=== PATIENT | female | born 1975 | race American Indian/Alaskan Native ===

== ENCOUNTER 2019-06-30 05:58 | Day surgery (SDC) | payer BC, OTHER ==
[2019-06-30] MEDS ORDERED: LACTATED RINGERS 1,000 ML IV SCH (07:00)
[2019-06-30 07:11] LABS: Eosinophils # (Auto) 0.1 K/mm3 (0.0-0.4); Eosinophils % (Auto) 1.3 % (0.0-4.3); Hematocrit 34.3 % (30.3-42.9); Lymphocytes # (Auto) 1.8 K/mm3 (1.2-5.4); Lymphocytes % (Auto) 43.6 % (13.4-35.0); Mean Corpuscular HGB Conc 35 % (30-34); Mean Corpuscular Volume 86 fl (79-97); Monocytes # (Auto) 0.3 K/mm3 (0.0-0.8); Monocytes % (Auto) 7.1 % (0.0-7.3); Platelet Count 282 K/mm3 (140-440); Red Cell Distribution Width 13.2 % (13.2-15.2)
[2019-06-30] MEDS ORDERED: ZOFRAN IV PRN (07:12)
[2019-06-30] MEDS ORDERED: SUBLIMAZE IV PRN (07:12)
--- NOTE | 2019-06-30 07:12 | Anesthesia Day of Surgery ---
Anesthesia Day of Surgery - Day of Surgery Patient Examined: Yes Patient H&P Reviewed: Yes Patient is NPO: Yes
--- NOTE | 2019-06-30 07:13 | Anesthesia Consultation ---
Anesthesia Consult and Med Hx Date of service: 06/30/19 - Airway Anesthetic Teeth Evaluation: Caps ROM Head & Neck: Adequate Mental/Hyoid Distance: Adequate Mallampati Class: Class II Intubation Access Assessment: Good - Pre-Operative Health Status ASA Pre-Surgery Classification: ASA2 Proposed Anesthetic Plan: General - Cardiovascular System Hx Hypertension: Yes - Central Nervous System Hx Psychiatric Problems: Yes - Gastrointestinal Hx Gastroesophageal Reflux Disease: Yes (S/P Gastric Sleeve) - Hematic Hx Anemia: Yes ("low normal") - Other Systems Hx Alcohol Use: Yes (Occas) Hx Cancer: No
[2019-06-30] MEDS ORDERED: MARCAINE 0.5% INFILTRATI ONE ×2 (07:14→08:06)
[2019-06-30] MEDS ORDERED: SILVER NITRATE TP ONE (07:15)
--- NOTE | 2019-06-30 07:19 | Short Stay Summary ---
Short Stay Documentation Date of service: 06/30/19 Narrative H&P: 44-year-old with dysfunctional uterine bleeding and undesired fertility. The patient reports heavy menstrual cycles. She has no further desire to conceive and has elected to undergo permanent sterilization. An endometrial biopsy was performed with findings of benign endometrium. The patient is scheduled to undergo an endometrial ablation and bilateral tubal ligation. - History Principal diagnosis: dysfunctional uterine bleeding and undesired fertility Past Medical History: hypertension Past Surgical History: Other (breasts reduction; laparoscopy for ectopic ) Social history: - Allergies and Medications Current Medications: Allergies No Known Allergies Allergy (Verified 06/30/19 06:42) Home Medications Medication Instructions Recorded Confirmed Last Taken Type Citalopram [celeXA] 20 mg PO QDAY 06/23/19 06/30/19 06/23/19 10:00 History Losartan [Cozaar] 25 mg PO QDAY 06/23/19 06/23/19 06/29/19 12:00 History Multivitamin [One-Daily 1 each PO DAILY 06/23/19 06/23/19 06/29/19 12:00 History Multi-Vitamin] 147/Iron/Folic Acid 1 each PO DAILY 06/23/19 06/23/19 06/29/19 12:00 History [Azesco Tablet] Active Medications Fentanyl (Sublimaze) 50 mcg IV Q5MIN PRN PRN Reason: Pain , Severe (7-10) Lactated Ringer's (Lactated Ringers) 1,000 mls @ 100 mls/hr IV DIRECT MEGHAN Last Admin: 06/30/19 06:45 Dose: 100 mls/hr Documented by: Midazolam HCl (Versed) 2 mg IV PREOP NR Stop: 06/30/19 23:59 Ondansetron HCl (Zofran) 4 mg IV ONCE PRN PRN Reason: Nausea And Vomiting - Physical exam General appearance: no acute distress Integumentary: no rash HEENT: Atraumatic Lungs: Clear to auscultation Breasts: deferred Heart: Regular rate Gastrointestinal: normal Female Genitourinary: deferred Rectal Exam: deferred Extremities: no ischemia Neurological: Normal gait - Brief post op/procedure progress note Date of procedure: 06/30/19 Pre-op diagnosis: dysfunctional uterine bleeding; undesired fertility Post-op diagnosis: same Procedure: Hysteroscopy Endometrial ablation via NovaSure Exploratory laparotomy and bilateral salpingectomy Anesthesia: GETA Surgeon: FRANCESCA FERNANDEZ Estimated blood loss: 50-100ml Pathology: list (bilateral tubes; omental mass) Specimen disposition: to lab Condition: stable - Hospital course Hospital course: The patient was admitted the day of surgery for a NovaSure and tubal ligation. Please see operative note for details of the surgery. Her postoperative course was uneventful. - Disposition Condition at discharge: Good Disposition: [id number] TO HOME OR SELFCARE Short Stay Discharge Plan Activity: other (pelvic rest for 2 weeks) Diet: regular Additional Instructions: Schedule follow-up with Dr. Fernandez in 2 weeks Prescriptions: Ibuprofen [Motrin] 800 mg PO Q8HR PRN #60 tablet PRN Reason: Pain, Mild (1-3) oxyCODONE /ACETAMINOPHEN [Percocet 5/325] 1 tab PO Q6HR PRN #30 tablet PRN Reason: Pain
[2019-06-30] MEDS ORDERED: XYLOCAINE MPF 2% ONE (07:35)
[2019-06-30] MEDS ORDERED: DIPRIVAN 10 MG/ML IV ONE (07:35)
[2019-06-30] MEDS ORDERED: PHENYLEPHRINE/NS Syringe 1,000 MCG/10 ML IV ONE (07:35)
[2019-06-30] MEDS ORDERED: QUELICIN ONE (07:35)
[2019-06-30] MEDS ORDERED: SUBLIMAZE ONE ×2 (07:35→08:56)
[2019-06-30] MEDS ORDERED: DECADRON ONE (07:35)
[2019-06-30] MEDS ORDERED: ZOFRAN ONE (07:35)
[2019-06-30] MEDS ORDERED: VERSED IV NR (08:00)
[2019-06-30] MEDS ORDERED: ZEMURON IV ONE (08:02)
[2019-06-30] MEDS ORDERED: BLOXIVERZ ONE (08:02)
[2019-06-30] MEDS ORDERED: NACL 0.9% IR ONE ×2 (08:06)
--- NOTE | 2019-06-30 10:41 | Operative Report ---
Operative Report Operative Report: Date of procedure: 06/30/2019 Pre-operative diagnosis: Dysfunctional uterine bleeding Post-operative diagnosis: Same as above Procedure name(s): Hysteroscopy; endometrial ablation via NovaSure Surgeon: Yisel Trotter M.D. Review Engineer: None Anesthesia: General endotracheal anesthesia Findings normal endometrial cavity Indication: 44-year-old with dysfunctional uterine bleeding. The patient has failed medical management and elected to undergo surgical management of her abnormal bleeding. Procedure The patient was taken to the operating room and given general tracheal anesthesia without complication. The patient was prepped and draped in a normal sterile fashion. A bivalve speculum was placed in the patient's vagina single- tooth tenaculums placed on the anterior lip of the cervix. The cervical os was dilated with graduated dilators. A uterine sound was inserted. The hyster oscope was then placed. Insufflation of the uterine cavity was performed with normal saline. Gen. survey of the uterine cavity revealed normal endometrial cavity. The hysteroscope was then removed. The NovaSure device was then inserted. The endometrial length was 5.5 cm and the uterine width was 3.6 cm. The device was engaged and it passed the surveillance of the uterine cavity. The NovaSure device was then deployed with a energy of 109 W that lasted for 1 minute 27 seconds. The NovaSure device was then removed. The hysteroscope was again reinserted. There was evidence of charring of the endometrial surface. The hysteroscope was then removed. Date of surgery: 06/30/2019 Preoperative diagnosis: Unwanted fertility Postoperative diagnosis: Same as above Procedure: Failed laparoscopy; mini exploratory laparotomy; bilateral salpingectomy Surgeon: Yisel Lozano M.D. Anesthesia: General endotracheal anesthesia Estimated blood loss: 100 mL Findings: Abdominal adhesions; normal size uterus; surgically manipulated right fallopian tube and normal left fallopian tube Indication: 44-year-old with undesired fertility. The patient was aware of other contraceptive options and elected to undergo permanent sterilization. Procedure: .A uterine acorn manipulator was placed, and the bivalve speculum was then removed. Attention was then turned to the patient's abdomen where a 5 mm infraumbilical skin incision was then made. A Veress needle was placed and peritoneal entry was verified water-filled syringe. Insufflation of the peritoneal cavity was performed with CO2 gas. A 5 mm trocar was placed and the laparoscope was then inserted. Unable to obtain peritoneal entry through the umbilical site. Multiple attempts were performed. The decision was made to attempt a left upper quadrant entry however there were adhesions found in the left upper quadrant and peritoneal entry could not be verified. The decision was made to abort the laparoscopy and proceed with a minilaparotomy to access the fallopian tubes. A Pfannenstiel skin incision was made down to layer of the fascia was nicked in the midline and extended laterally with the Bovie cautery. The superior aspect of the rectus fascia was grasped with [place] clamps 2 and the rectus muscles off sharply. This was done in inferior fashion as well. The rectus muscles in the midline appeared to now entered bluntly. An sadi retractor was then placed and the bowel was packed with warm laparotomy sponges. The fallopian tube was then grasped with the Dread and followed out to the fimbriated and on the left side. The LigaSure device was used to coagulate and transect the mesosalpinx excising the fallopian tube from the ovary and the uterus. Attention was then turned to the right fallopian tube. There was evidence of adhesions of the distal and of fallopian tube. The LigaSure device was used to coagulate and transect the mesosalpinx removing the majority of the right fallopian tube. There were findings of a small mass on the omentum which was removed with the LigaSure device and sent to pathology. The pelvis was then copiously irrigated and the retractor and laparotomy sponges were removed. The peritoneum was then closed with 0 Vicryl in a running fashion. The fascia was then closed with 0 Vicryl in a running fashion. The skin was then reapproximated with 3-0 Monocryl on a Kip needle subcuticular fashion. The 2 other laparoscopic trocar incisions were closed with 4-0 Monocryl. The sites were injected with Marcaine. Pressure dressing and Steri- Strips were placed across the incision. The vaginal instruments were then removed atraumatically. The patient was then successfully extubated and taken to the recovery room. All sponge laps and needle counts were correct 2.
[2019-06-30] MEDS ORDERED: PERCOCET 5/325 PO PRN (11:00)
[2019-06-30 14:02] VITALS: BP 157/97
--- NOTE | 2019-06-30 14:12 | Post Anesthesia Evaluation ---
- Post Anesthesia Evaluation Patient Participated: Yes Airway Patent: Yes Stable Respiratory Function: Yes Nausea/Vomiting: No Temp > 96.8F: Yes Pain Manageable: Yes Adequeate Hydration: Yes Anesthesia Complications: No Block Receding Appropriately: Not Applicable Patient on Ventilator: No
== END 2019-06-30 12:00 | disposition home or self-care (01) ==
LOC: OR 05:58
PROVIDERS: ATTEND Obstetrics & Gynecology
DX: Z30.2 Encounter for sterilization (principal); I10 Essential (primary) hypertension; N93.9 Abnormal uterine and vaginal bleeding, unspecified; Z53.31 Laparoscopic surgical procedure converted to open procedure; K21.9 Gastro-esophageal reflux disease without esophagitis; F41.9 Anxiety disorder, unspecified; Z79.899 Other long term (current) drug therapy; Z72.89 Other problems related to lifestyle; Z98.890 Other specified postprocedural states; Z86.2 Personal history of diseases of the blood and blood-forming organs and certain disorders involving the immune mechanism
CPT/HCPCS: 36415; 58563; 58700; 81025; 85025; 88302; 88305; A4217; J0330; J1100; J2250; J2370; J2405; J2704; J2710; J3010; J7120